=== PATIENT | female | born 1985 | race African-American/Black ===

== ENCOUNTER 2019-02-16 18:54 | Emergency (ER) | payer MEDICAID, OTHER ==
[~2019-02-16] VITALS: Ht 170.2 cm; Wt 125.6 kg
[2019-02-16 19:15] VITALS: BP 131/87
--- NOTE | 2019-02-16 19:15 | NUR ---
ED Nurse Note: Patient ambulated to ed from home due to shortness of breath since last night while driving in the car. Pt states she began taking lisinopril and noticed coughing. O2 sat 98% RA. Afebrile. VSS.
--- NOTE | 2019-02-16 19:53 | NUR ---
ED Nurse Note: Xray at bedside.
--- NOTE | 2019-02-16 20:47 | NUR ---
ED Nurse Note: Blood collected and sent to lab.
[2019-02-16 21:04] LABS: APPEARANCE,URINE CLEAR; BILIRUBIN, URINE NEGATIVE (NEGATIVE); GLUCOSE, URINE (UA) NEGATIVE (NEGATIVE); KETONES,URINE 1+ (NEGATIVE); LEUKOCYTE ESTERASE ,URINE NEGATIVE (NEGATIVE); NITRITE,URINE NEGATIVE (NEGATIVE); PH,URINE 5 (4.5-8.0); PROTEIN,URINE NEGATIVE (NEGATIVE); UROBILINOGEN,URINE 1 MG/DL (0.0-1.0)
[2019-02-16 21:07] LABS: COLOR,URINE YELLOW
[2019-02-16 21:08] LABS: BASOPHILS % (AUTO) 0.9 % (0.0-2.0); EOSINOPHILS % (AUTO) 2.2 % (0.0-3.0); HEMOGLOBIN 12.2 G/DL (12.0-16.0); LYMPHOCYTES % (AUTO) 36.8 % (20.0-45.0); MEAN CORPUSCULAR VOLUME 74 FL (80-99); MONOCYTES % (AUTO) 7.9 % (1.0-10.0); NEUTROPHILS % (AUTO) 52.2 % (45.0-75.0); PLATELET COUNT 350 K/UL (150-450); RED BLOOD COUNT 5.26 M/UL (4.20-5.40); RED CELL DISTRIBUTION WIDTH 12.5 % (11.6-14.8); WHITE BLOOD COUNT 10.1 K/UL (4.8-10.8)
[2019-02-16 21:19] LABS: ANION GAP 3 mmol/L (5-15); BLOOD UREA NITROGEN 8 mg/dL (7-18); CALCIUM 9.2 MG/DL (8.5-10.1); CARBON DIOXIDE 31 MMOL/L (21-32); CHLORIDE 105 MMOL/L (98-107); CREATININE 0.9 MG/DL (0.55-1.30); SODIUM 139 MMOL/L (136-145)
[2019-02-16 21:24] LABS: ALANINE AMINOTRANSFERASE 24 U/L (12-78); ALBUMIN 3.7 G/DL (3.4-5.0); ALBUMIN/GLOBULIN RATIO 0.9 (1.0-2.7); ALKALINE PHOSPHATASE 53 U/L (46-116); ASPARTATE AMINO TRANSFERASE 26 U/L (15-37); BILIRUBIN,TOTAL 0.2 MG/DL (0.2-1.0)
--- NOTE | 2019-02-16 21:30 | Emergency Room Report ---
History of Present Illness General Chief Complaint: Upper Respiratory Illness Source: Patient Present Illness HPI 33-year-old female with history of hypertension recently started on lisinopril here complaining of 3 days of a dry cough after taking lisinopril. Denies shortness of breath, chest pain, palpitation, abdominal pain, nausea vomiting. Denies syncope. Follow-up with her primary care provider. Is sitting comfortably with stable vital signs. Denies anaphylaxis, angioedema. Has not taken medication for symptom relief. Describes the cough as a short dry cough without exacerbation. Allergies: Coded Allergies: IBUPROFEN (Verified Allergy, Unknown, 02/16/19) PENICILLINS (Verified Allergy, Unknown, 02/16/19) Patient History Past Medical History: see triage record Past Surgical History: unable to obtain Pertinent Family History: none Last Menstrual Period: 01/26/19 Now: No Immunizations: UTD Reviewed Nursing Documentation: PMH: Agreed; PSxH: Agreed Nursing Documentation-PMH Past Medical History: No History, Except For Hx Hypertension: Yes Review of Systems All Other Systems: negative except mentioned in HPI Physical Exam Vital Signs Date Time Temp Pulse Resp B/P (MAP) Pulse Ox O2 Delivery O2 Flow Rate FiO2 02/16/19 19:08 98.4 62 16 131/87 (102) 98 Room Air Sp02 EP Interpretation: reviewed, normal General Appearance: no apparent distress, alert, GCS 15, non-toxic Head: normocephalic, atraumatic Eyes: bilateral eye normal inspection, bilateral eye PERRL ENT: hearing grossly normal, normal pharynx, no angioedema, normal voice Neck: full range of motion, supple, supple/symm/no masses Respiratory: chest non-tender, lungs clear, normal breath sounds, no rhonchi, no wheezing, speaking full sentences Cardiovascular #1: regular rate, rhythm, no edema, no murmur Gastrointestinal: normal bowel sounds, non tender, soft, non-distended, no guarding, no rebound Genitourinary: no CVA tenderness Musculoskeletal: back normal, gait/station normal, normal range of motion, non- tender, no calf tenderness Neurologic: alert, oriented x3, responsive, motor strength/tone normal, sensory intact, speech normal Psychiatric: judgement/insight normal, memory normal, mood/affect normal, no suicidal/homicidal ideation Skin: no rash Lymphatic: no adenopathy Medical Decision Making PA Attestation Diagnosis and treatment plans were reviewed and discussed with my supervising physician Dr. Pizano Diagnostic Impression: Primary Impression: Adverse effects of medication Additional Impressions: Bradycardia HTN (hypertension) ER Course 33-year-old female with history of hypertension recently started on lisinopril here complaining of 3 days of a dry cough after taking lisinopril. Denies shortness of breath, chest pain, palpitation, abdominal pain, nausea vomiting. Denies syncope. Follow-up with her primary care provider. Is sitting comfortably with stable vital signs. Denies anaphylaxis, angioedema. Has not taken medication for symptom relief. Describes the cough as a short dry cough without exacerbation. Ddx considered but are not limited to: PR, Angina, COPD, adverse effects of medication, hypertension, bradycardia, Vital signs: are WNL, pt. is afebrile H&PE are most consistent with hypertension, bradycardia, adverse effect of lisinopril ORDERS: EKG, Chest XR, cardiac labs(troponin, CBC, CMP, amlodipine ED INTERVENTIONS: None required at this time. DISCHARGE: At this time pt. is stable for d/c to home. Will provide printed patient care instructions, and any necessary prescriptions. Care plan and follow up instructions have been discussed with the patient prior to discharge. At this time no further work-up is necessary as patient is stable with stable vital signs and symptoms are secondary to taking lisinopril. I advised patient to stop taking lisinopril and start amlodipine however do follow-up with primary care. Patient reports that she has an upcoming appointment with primary care this coming Sunday. If worsening symptoms return to the emergency room. EKG Diagnostic Results Rate: bradycardiac Rhythm: other ST Segments: no acute changes Other Impression No acute ST changes Chest X-Ray Diagnostic Results Chest X-Ray Diagnostic Results : Chest X-Ray Ordered: Yes # of Views/Limited/Complete: 1 View Indication: Other EP Interpretation: Yes TEJ Xray: Interpretation reviewed, by supervising MD, and agrees with findings. Interpretation: no consolidation, no effusion, no pneumothorax Impression: No acute disease Electronically Signed by: Issa De La Rosa PA-C Last Vital Signs Date Time Temp Pulse Resp B/P (MAP) Pulse Ox O2 Delivery O2 Flow Rate FiO2 02/16/19 19:15 98.4 63 16 131/87 98 Room Air Disposition: HOME, SELF-CARE Condition: Stable Scripts Amlodipine Besylate (Norvasc) 5 Mg Tablet 5 MG ORAL DAILY for 7 Days, #7 TAB Prov: Issa Castillo 02/16/19 Patient Instructions: Bradycardia, Hypertension Additional Instructions: Follow-up with your primary care provider stop taking lisinopril as it is the cause of your intermittent cough. Also have your primary doctor to send you to a skidder operator for low heart rate. If worsening symptoms return to the emergency room. Take amlodipine temporarily until seen by primary care provider. Issa Castillo Feb 16, 2019 21:30
[2019-02-16] MEDS ORDERED: NORVASC5 MG ORAL (21:31)
[2019-02-16 21:36] VITALS: BP 136/72
--- NOTE | 2019-02-16 21:36 | NUR ---
ED Nurse Note: Pt cleared by ERMD for discharge. DC instructions/prescription was given and explained to pt and verbalized understanding of teachings. All medical deviecs such as ID band removed. Pt is AAO x4, ambulatory and left with all personal belongings.
--- NOTE | 2019-02-17 15:17 | Diagnostic Imaging Report ---
Indication: Dyspnea Comparison: None A single view chest radiograph was obtained. Findings: Cardiomediastinal appearance is within normal limits for age. The lungs are clear. Pulmonary vascularity is appropriate. The diaphragmatic contour is smooth and costophrenic angles are sharp. No pleural effusions are identified. The bones are unremarkable. Impression: No acute findings
== END 2019-02-16 21:36 | disposition home or self-care (01) ==
LOC: EMR 19:30
DX: T46.4X5A Adverse effect of angiotensin-converting-enzyme inhibitors, initial encounter (principal); Y92.9 Unspecified place or not applicable; R00.1 Bradycardia, unspecified; I10 Essential (primary) hypertension; Z88.0 Allergy status to penicillin; Z88.6 Allergy status to analgesic agent
CPT/HCPCS: 36415; 71045; 80053; 81001; 81025; 84484; 85025; 93005; Z7502; 99283